=== PATIENT | female | born 1960 | race Caucasian/White ===

== ENCOUNTER 2017-04-25 16:40 | Emergency (ER) | payer OTHER ==
--- NOTE | 2017-04-25 16:47 | PDOC ---
History of Present Illness - General Chief Complaint: Injury Stated Complaint: LEFT UPPER ARM INJURY Time Seen by Provider: 04/25/17 16:44 - History of Present Illness Initial Comments: 04/25/17 16:48 Chief complaint: Pain left shoulder History of present illness: Patient tripped at work, fell into a table and then onto the floor, impacting her left shoulder and scraping her knees. Complains of pain in the left shoulder, especially with abduction of the left arm. No distal numbness tingling pain or weakness in the forearm hand or fingers. No pain at present in the knees and no pain with weightbearing Review of systems: Denies loss of consciousness, pain or injury to the head neck chest abdomen spine and pelvis. Past medical history: Healthy female, takes only vitamins. Social/family history reviewed and noncontributory Physical exam: Alert and oriented 3, moderately obese, no acute distress, cooperative Afebrile, vital signs normal Head atraumatic. PERRLA, fundi benign, ENT clear Neck without tenderness or deformity, full range of motion without pain Lungs clear. No chest wall or rib cage tenderness or deformity CV regular without murmur rub or gallop Abdomen soft nontender without mass or organomegaly. No CVAT Spine without point tenderness or deformity Neurological C2 to 12 intact. Strength full and symmetric. No focal sensory or motor deficits. Gait stable and unimpaired Extremities: Left shoulder without obvious deformity. Mild tenderness over the rotator cuff in the area of the deltoid. No limited range of motion, but pain with abduction greater than 90 in the area of the deltoid. Pulses full. No distal sensory or motor deficits. Capillary refill intact. Impression: Rotator cuff contusion, rule out fracture X-ray and further orthopedic management depending on results. Analgesics/anti- inflammatory. Past History - Past Medical History Allergies/Adverse Reactions: Allergies Allergy/AdvReac Type Severity Reaction Status Date / Time No Known Allergies Allergy Verified 04/25/17 16:42 Home Medications: Ambulatory Orders Ibuprofen 600 mg PO QID PRN #20 tablet 04/25/17 - Psycho/Social/Smoking Cessation Hx Suicidal Ideation: No Smoking Status: No Smoking History: Never smoked Number of Cigarettes Smoked Daily: 0 Medical Decision Making - Medical Decision Making 04/25/17 17:51 X-ray negative Sling applied for 2-3 days, then range of motion exercises as instructed. Follow -up with orthopedist to consider physical therapy if there are still symptoms. Anti-inflammatory medication as directed. *DC/Admit/Observation/Transfer Diagnosis at time of Disposition: Shoulder sprain Qualifiers: Encounter type: initial encounter Shoulder sprain type: rotator cuff capsule Laterality: left Qualified Code(s): S43.422A - Sprain of left rotator cuff capsule, initial encounter - Discharge Dispostion Disposition: HOME Condition at time of disposition: Stable Admit: No - Prescriptions Prescriptions: Ibuprofen 600 mg PO QID PRN #20 tablet PRN Reason: Pain - Referrals Referrals: David Barajas MD [Staff Physician] - - Patient Instructions Printed Discharge Instructions: How to Use a Sling, DI for Shoulder Sprain Additional Instructions: Rest, ice, and medication as directed. See orthopedist for further evaluation and treatment if no improvement in one week. Do not use the sling more than 2 or 3 days, try to get the shoulder moving as soon as possible to avoid prolonged stiffness. Do the stretching and range of motion exercises referred to as "pendulum" and "walking" as demonstrated. - Post Discharge Activity Work/School Note: Back to Work
[2017-04-25] MEDS ORDERED: IBUPROFEN 600 MG TABLET (FP) PO ONE ×2 (16:48→16:54)
[2017-04-25 16:52] VITALS: BP 160/99; PULSE 87; TEMP 98; BMI 41.7
== END 2017-04-25 18:04 | disposition home or self-care (01) ==
LOC: FER 16:40
DX: S43.422A Sprain of left rotator cuff capsule, initial encounter (principal); W13.8XXA Fall from, out of or through other building or structure, initial encounter; Y93.89 Activity, other specified; Y92.9 Unspecified place or not applicable; Y99.0 Civilian activity done for income or pay
CPT/HCPCS: 73030-TC-LT; 99282-25

== ENCOUNTER 2023-09-16 12:48 | Emergency (ER) | payer OTHER ==
[2023-09-16] MEDS ORDERED: MECLIZINE HCL 25 MG TABLET (FP) PO ONE (13:06)
[2023-09-16] MEDS ORDERED: MECLIZINE HCL 25 MG TABLET (FP) ONE (13:08)
[2023-09-16 13:12] VITALS: BP 142/89; PULSE 88; RESP 16; TEMP 97.7; BMI 39.0
[2023-09-16 13:48] LABS: HEMOGLOBIN 13.3 G/dL (10.7-15.3); MCH 29.5 pg (25.7-33.7); MCHC 33.2 g/dl (32.0-36.0); MEAN CELL VOLUME 88.7 fl (80-96); MEAN PLT VOLUME 9.4 fl (7.5-11.1); RBC 4.51 10^6/uL (3.60-5.2); RDW 14.6 % (11.6-15.6); WHITE BLOOD COUNT 8.2 10^3/uL (4.0-10.8)
[2023-09-16 13:53] LABS: PLATELET ESTIMATE ADEQUATE
[2023-09-16 13:58] LABS: ALBUMIN 3.7 g/dl (3.4-5.0); BILIRUBIN,TOTAL 0.4 mg/dl (0.2-1); CREATININE 0.6 mg/dl (0.6-1.3); MAGNESIUM 2.1 mg/dL (1.8-2.4); POTASSIUM 4.3 mmol/L (3.5-5.1); TOT PROT 6.2 g/dl (6.4-8.2)
== END 2023-09-16 14:44 | disposition home or self-care (01) ==
LOC: FER 12:48
DX: R42 Dizziness and giddiness (principal)
CPT/HCPCS: 36415; 80053; 83735; 85027; 99283-25